=== PATIENT | female | born 1960 | race Caucasian/White ===

== ENCOUNTER 2023-04-09 15:02 | Emergency (ER) | payer BC, OTHER ==
[~2023-04-09] VITALS: Ht 165.1 cm; Wt 81.8 kg
[2023-04-09] MEDS ORDERED: KETOROLAC TROMETH 60MG/2ML VIAL IM ONE (15:30)
[2023-04-09 16:53] VITALS: BP 140/60; PULSE 95; RESP 17; TEMP 98.4; O2SAT 98
== END 2023-04-09 16:59 | disposition home or self-care (01) ==
LOC: ER 15:02
DX: I83.813 Varicose veins of bilateral lower extremities with pain (principal); I10 Essential (primary) hypertension
CPT/HCPCS: 76881; 93971; 96372; 99285; J1885